=== PATIENT | male | born 1965 | race African-American/Black ===

== ENCOUNTER 2019-11-11 20:00 | Inpatient (IN) | payer MEDICARE, MEDICAID ==
[~2019-11-11] VITALS: Ht 167.6 cm; Wt 100.4 kg
[2019-11-11] MEDS ORDERED: FUROSEMIDE 40MG/4ML VIAL IVP ONE (21:15)
[2019-11-11 21:45] LABS: CHLORIDE 103 mEq/L (98-107)
[2019-11-11 21:50] LABS: BASOPHILS % 0.8 % (0.0-2.0); EOSINOPHILS % 3.3 % (0.0-5.0); HEMATOCRIT. 32.5 % (42.0-52.0); HEMOGLOBIN. 10.5 g/dL (14.0-18.0); LYMPHOCYTES % 17.3 % (20.0-50.0); MEAN CORPUSCULAR HEMOGLOBIN 31.7 pg (28.0-32.0); MEAN CORPUSCULAR VOLUME 97.8 fL (80.0-94.0); MEAN PLATELET VOLUME 9.7 fl (7.4-10.4); MONOCYTES % 10.9 % (2.0-8.0); NEUTROPHILS % 67.7 % (40.0-76.0); PLATELET 95 x1000/uL (130-400); RED BLOOD CELL COUNT 3.32 mill/uL (4.7-6.1)
[2019-11-11] MEDS ORDERED: MORPHINE SULFATE 4 MG/ML CPJ (NOT FOR IM USE) IV ONE (23:45)
[2019-11-12 00:15] VITALS: BP 132/81
[2019-11-12] MEDS ORDERED: FURO80TA87 MT (02:12)
[2019-11-12] MEDS ORDERED: FLUT1DIS3 INH (02:12)
[2019-11-12] MEDS ORDERED: LISI-186 MT (02:12)
[2019-11-12] MEDS ORDERED: AMOX-494 MT (02:12)
[2019-11-12] MEDS ORDERED: SPIR25TA6 MT (02:12)
[2019-11-12] MEDS ORDERED: ALLO100T MT (02:12)
[2019-11-12] MEDS ORDERED: ALBU6.7H9 INH (02:12)
[2019-11-12] MEDS ORDERED: ASPI-1158 MT (02:12)
[2019-11-12] MEDS ORDERED: PRED10TA23 MT (02:12)
[2019-11-12] MEDS ORDERED: HYDROCODONE/ACETAMINOPHEN 5/325MG TABLET PO PRN (02:15)
[2019-11-12] MEDS ORDERED: NON FORMULARY PATIENT HOME MED XX SCH ×3 (02:15)
[2019-11-12] MEDS ORDERED: IPRATROPIUM/ALBUTEROL 0.5-3(2.5)MG/3ML NEB HHN PRN (02:15)
[2019-11-12 03:55] VITALS: BP 110/77
[2019-11-12] MEDS: MORPHINE SULFATE 2 MG/ML CPJ (NOT FOR IM USE) IV PRN ×4 (03:58→20:08)
[2019-11-12 06:16] LABS: BASOPHILS % 0.8 % (0.0-2.0); EOSINOPHILS % 4.5 % (0.0-5.0); HEMATOCRIT. 31.5 % (42.0-52.0); HEMOGLOBIN. 10.1 g/dL (14.0-18.0); LYMPHOCYTES % 23.2 % (20.0-50.0); MEAN CORPUSCULAR HEMOGLOBIN 31.7 pg (28.0-32.0); MEAN CORPUSCULAR VOLUME 98.9 fL (80.0-94.0); MEAN PLATELET VOLUME 9.3 fl (7.4-10.4); MONOCYTES % 13.1 % (2.0-8.0); NEUTROPHILS % 58.4 % (40.0-76.0); PLATELET 87 x1000/uL (130-400); RED BLOOD CELL COUNT 3.18 mill/uL (4.7-6.1); RED CELL DISTRIBUTION WIDTH 18.2 % (11.6-14.6)
[2019-11-12 06:22] LABS: CHLORIDE 105 mEq/L (98-107)
[2019-11-12 08:00] VITALS: BP 106/69
[2019-11-12] MEDS: BUDESONIDE 0.5MG/2ML NEB HHN SCH ×2 (08:34→21:49)
[2019-11-12] MEDS: ALBUTEROL (0.083%) 2.5MG/3ML NEB HHN SCH (08:35)
[2019-11-12] MEDS: ALLOPURINOL 100 MG TABLET PO SCH (08:52)
[2019-11-12] MEDS: SPIRONOLACTONE 25MG TABLET PO SCH (08:52)
[2019-11-12] MEDS: PREDNISONE 10MG TABLET PO SCH (08:52)
[2019-11-12] MEDS: AMOXICILLIN 500 MG CAPSULE PO SCH ×3 (08:52→17:17)
[2019-11-12] MEDS: FUROSEMIDE 40MG TABLET PO SCH ×2 (08:52→20:07)
[2019-11-12] MEDS: ASPIRIN 81MG EC TABLET PO SCH (08:53)
[2019-11-12] MEDS: HEPARIN 5000 UNITS/ML VIAL SUBCUT SCH ×2 (08:54→20:07)
[2019-11-12] MEDS ORDERED: LISINOPRIL 5MG TABLET PO SCH (09:00)
[2019-11-12 12:00] VITALS: BP 137/65
[2019-11-12] MEDS: MAGNESIUM 2 G PREMIX 50 ML IV SCH ×2 (12:00→17:18)
[2019-11-12] MEDS ORDERED: PNEUMOCOCCAL 23-VAL P-SAC VAC 0.5 ML IM ONE (12:00)
[2019-11-12] MEDS: AMIODARONE HCL 200 MG TABLET PO SCH ×2 (12:57→17:18)
[2019-11-12] MEDS: CARVEDILOL 3.125 MG TABLET PO SCH ×2 (12:57→20:07)
[2019-11-12] MEDS: IPRATROPIUM/ALBUTEROL 0.5-3(2.5)MG/3ML NEB HHN SCH ×2 (14:19→21:50)
[2019-11-12 16:00] VITALS: BP 106/78
[2019-11-12 18:34] LABS: TOTAL IRON BINDING CAPACITY 400 ug/dL (250-450)
[2019-11-12 20:00] VITALS: BP 126/68
[2019-11-12 22:11] LABS: INR 1.1; PROTHROMBIN TIME 11.9 sec (9.6-11.0)
[2019-11-13] VITALS: BP 114/66
[2019-11-13] MEDS: MORPHINE SULFATE 2 MG/ML CPJ (NOT FOR IM USE) IV PRN ×4 (00:05→23:24)
[2019-11-13] MEDS: IPRATROPIUM/ALBUTEROL 0.5-3(2.5)MG/3ML NEB HHN SCH ×3 (01:55→14:22)
[2019-11-13 04:00] VITALS: BP 117/62
[2019-11-13 05:50] LABS: BASOPHILS % 0.5 % (0.0-2.0); EOSINOPHILS % 1.5 % (0.0-5.0); HEMOGLOBIN. 9.1 g/dL (14.0-18.0); LYMPHOCYTES % 12.3 % (20.0-50.0); MEAN CORPUSCULAR HEMOGLOBIN 31.6 pg (28.0-32.0); MEAN CORPUSCULAR VOLUME 97.2 fL (80.0-94.0); MEAN PLATELET VOLUME 9.2 fl (7.4-10.4); MONOCYTES % 11.5 % (2.0-8.0); NEUTROPHILS % 74.2 % (40.0-76.0); PLATELET 79 x1000/uL (130-400); RED BLOOD CELL COUNT 2.88 mill/uL (4.7-6.1)
[2019-11-13 06:06] LABS: PHOSPHORUS 3.6 mg/dL (2.5-4.9)
[2019-11-13 08:00] VITALS: BP 100/66
[2019-11-13] MEDS: CARVEDILOL 3.125 MG TABLET PO SCH ×2 (08:18→21:00)
[2019-11-13] MEDS: HEPARIN 5000 UNITS/ML VIAL SUBCUT SCH (08:19)
[2019-11-13] MEDS: ALLOPURINOL 100 MG TABLET PO SCH (08:23)
[2019-11-13] MEDS: AMOXICILLIN 500 MG CAPSULE PO SCH ×3 (08:23→17:27)
[2019-11-13] MEDS: ASPIRIN 81MG EC TABLET PO SCH (08:24)
[2019-11-13] MEDS: SPIRONOLACTONE 25MG TABLET PO SCH (08:24)
[2019-11-13] MEDS: FUROSEMIDE 40MG TABLET PO SCH ×2 (08:24→17:28)
[2019-11-13] MEDS: PREDNISONE 10MG TABLET PO SCH (08:24)
[2019-11-13] MEDS: AMIODARONE HCL 200 MG TABLET PO SCH ×3 (08:24→17:28)
[2019-11-13] MEDS: BUDESONIDE 0.5MG/2ML NEB HHN SCH (09:34)
[2019-11-13 12:00] VITALS: BP 94/65
[2019-11-13] MEDS ORDERED: MAGNESIUM GLUCONATE 500MG TABLET PO NR (13:24)
[2019-11-13 15:19] LABS: CLARITY URINE CLEAR (CLEAR); COLOR URINE YELLOW (YELLOW); KETONES URINE NEGATIVE (NEGATIVE); LEUKOCYTE ESTERASE URINE NEGATIVE (NEGATIVE); NITRITE URINE NEGATIVE (NEGATIVE); OCCULT BLOOD URINE NEGATIVE (NEGATIVE); PROTEIN URINE 1+ (NEGATIVE); SPECIFIC GRAVITY URINE 1.022 (1.005-1.030); UROBILINOGEN URINE 0.2 E.U./dL (0.2-1.0)
[2019-11-13] MEDS ORDERED: MAGNESIUM 2 G PREMIX 50 ML IV NR (15:30)
[2019-11-13 15:43] LABS: *AMPHETAMINES SCREEN URINE NEGATIVE (NEGATIVE); *BENZODIAZEPINES SCREEN URINE NEGATIVE (NEGATIVE); *COCAINE SCREEN URINE NEGATIVE (NEGATIVE); METHADONE URINE SCREEN NEGATIVE (NEGATIVE); OPIATES URINE SCREEN PRESUMTIVE POSITIVE (NEGATIVE)
[2019-11-13 15:44] LABS: CANNABINOID URINE SCREEN NEGATIVE (NEGATIVE); PHENCYCLIDINE URINE SCREEN NEGATIVE (NEGATIVE)
[2019-11-13 15:46] LABS: *BARBITURATES SCREEN URINE NEGATIVE (NEGATIVE)
[2019-11-13 16:00] VITALS: BP 131/65
[2019-11-13] MEDS: ALBUTEROL (0.083%) 2.5MG/3ML NEB HHN SCH (21:04)
[2019-11-13 21:57] VITALS: BP 102/66
[2019-11-14 01:10] VITALS: BP 103/48
[2019-11-14] MEDS: ALBUTEROL (0.083%) 2.5MG/3ML NEB HHN SCH (01:12)
[2019-11-14] MEDS: BUDESONIDE 0.5MG/2ML NEB HHN SCH ×2 (01:12→08:24)
[2019-11-14 04:00] VITALS: BP 99/59
[2019-11-14 05:28] LABS: BASOPHILS % 0.8 % (0.0-2.0); EOSINOPHILS % 2.8 % (0.0-5.0); HEMATOCRIT. 28.8 % (42.0-52.0); HEMOGLOBIN. 9.5 g/dL (14.0-18.0); LYMPHOCYTES % 19.1 % (20.0-50.0); MEAN CORPUSCULAR HEMOGLOBIN 32.2 pg (28.0-32.0); MEAN CORPUSCULAR VOLUME 97.5 fL (80.0-94.0); MEAN PLATELET VOLUME 9.4 fl (7.4-10.4); MONOCYTES % 13.5 % (2.0-8.0); NEUTROPHILS % 63.8 % (40.0-76.0); PLATELET 84 x1000/uL (130-400); RED BLOOD CELL COUNT 2.96 mill/uL (4.7-6.1); RED CELL DISTRIBUTION WIDTH 18.3 % (11.6-14.6)
[2019-11-14] MEDS: FUROSEMIDE 40MG TABLET PO SCH ×3 (06:51→17:20)
[2019-11-14] MEDS: AMIODARONE HCL 200 MG TABLET PO SCH ×4 (06:51→17:20)
[2019-11-14 08:00] VITALS: BP 104/70
[2019-11-14] MEDS: IPRATROPIUM/ALBUTEROL 0.5-3(2.5)MG/3ML NEB HHN SCH ×3 (08:24→20:11)
[2019-11-14 08:36] LABS: CHLORIDE 106 mEq/L (98-107)
[2019-11-14] MEDS: AMOXICILLIN 500 MG CAPSULE PO SCH ×3 (08:42→17:20)
[2019-11-14] MEDS: ASPIRIN 81MG EC TABLET PO SCH (08:43)
[2019-11-14] MEDS: SPIRONOLACTONE 25MG TABLET PO SCH (08:43)
[2019-11-14] MEDS: PREDNISONE 10MG TABLET PO SCH (08:43)
[2019-11-14] MEDS: ALLOPURINOL 100 MG TABLET PO SCH (08:43)
[2019-11-14] MEDS: MORPHINE SULFATE 2 MG/ML CPJ (NOT FOR IM USE) IV PRN ×3 (08:44→21:53)
[2019-11-14] MEDS: CARVEDILOL 3.125 MG TABLET PO SCH ×2 (08:49→20:23)
[2019-11-14 12:00] VITALS: BP 113/84
[2019-11-14 16:00] VITALS: BP 113/82
[2019-11-14 20:00] VITALS: BP 120/78
[2019-11-15] VITALS: BP 111/79
[2019-11-15] MEDS: IPRATROPIUM/ALBUTEROL 0.5-3(2.5)MG/3ML NEB HHN SCH ×5 (01:38→20:36)
[2019-11-15] MEDS: MORPHINE SULFATE 2 MG/ML CPJ (NOT FOR IM USE) IV PRN ×4 (02:14→21:09)
[2019-11-15 04:00] VITALS: BP 103/79
[2019-11-15 06:00] LABS: BASOPHILS % 0.6 % (0.0-2.0); EOSINOPHILS % 2.2 % (0.0-5.0); HEMATOCRIT. 28.3 % (42.0-52.0); HEMOGLOBIN. 9.3 g/dL (14.0-18.0); MEAN CORPUSCULAR VOLUME 97.3 fL (80.0-94.0); MEAN PLATELET VOLUME 9.3 fl (7.4-10.4); MONOCYTES % 13.4 % (2.0-8.0); NEUTROPHILS % 68.8 % (40.0-76.0); PLATELET 84 x1000/uL (130-400); RED BLOOD CELL COUNT 2.91 mill/uL (4.7-6.1); RED CELL DISTRIBUTION WIDTH 17.8 % (11.6-14.6)
[2019-11-15 06:17] LABS: CHLORIDE 104 mEq/L (98-107)
[2019-11-15] MEDS: FUROSEMIDE 40MG TABLET PO SCH (06:24)
[2019-11-15] MEDS: AMIODARONE HCL 200 MG TABLET PO SCH ×3 (06:24→17:05)
[2019-11-15 08:00] VITALS: BP 112/77
[2019-11-15] MEDS: ALLOPURINOL 100 MG TABLET PO SCH (08:38)
[2019-11-15] MEDS: AMOXICILLIN 500 MG CAPSULE PO SCH ×3 (08:38→17:05)
[2019-11-15] MEDS: ASPIRIN 81MG EC TABLET PO SCH (08:38)
[2019-11-15] MEDS: CARVEDILOL 3.125 MG TABLET PO SCH ×2 (08:38→21:08)
[2019-11-15] MEDS: PREDNISONE 10MG TABLET PO SCH (08:38)
[2019-11-15] MEDS: SPIRONOLACTONE 25MG TABLET PO SCH (08:39)
[2019-11-15] MEDS: BUDESONIDE 0.5MG/2ML NEB HHN SCH (09:40)
[2019-11-15] MEDS: BUMETANIDE 1MG/4ML VIAL IV SCH (11:00)
[2019-11-15 12:00] VITALS: BP 110/70
[2019-11-15 16:00] VITALS: BP 125/70
[2019-11-15] MEDS: HEPARIN 5000 UNITS/ML VIAL SUBCUT SCH ×2 (21:00→21:10)
[2019-11-16] VITALS: BP 150/65
[2019-11-16] MEDS: MORPHINE SULFATE 2 MG/ML CPJ (NOT FOR IM USE) IV PRN ×4 (01:09→18:58)
[2019-11-16] MEDS: IPRATROPIUM/ALBUTEROL 0.5-3(2.5)MG/3ML NEB HHN SCH ×2 (01:44→21:22)
[2019-11-16 04:00] VITALS: BP 126/83
[2019-11-16 06:31] LABS: BASOPHILS % 0.8 % (0.0-2.0); EOSINOPHILS % 2.3 % (0.0-5.0); HEMATOCRIT. 29.6 % (42.0-52.0); HEMOGLOBIN. 9.7 g/dL (14.0-18.0); LYMPHOCYTES % 15.5 % (20.0-50.0); MEAN CORPUSCULAR HEMOGLOBIN 32.2 pg (28.0-32.0); MEAN CORPUSCULAR VOLUME 98.2 fL (80.0-94.0); MEAN PLATELET VOLUME 10.1 fl (7.4-10.4); MONOCYTES % 13.9 % (2.0-8.0); NEUTROPHILS % 67.5 % (40.0-76.0); PLATELET 97 x1000/uL (130-400); RED BLOOD CELL COUNT 3.01 mill/uL (4.7-6.1); RED CELL DISTRIBUTION WIDTH 17.7 % (11.6-14.6)
[2019-11-16] MEDS: AMIODARONE HCL 200 MG TABLET PO SCH ×2 (06:32→11:54)
[2019-11-16 06:50] LABS: CHLORIDE 102 mEq/L (98-107)
[2019-11-16 08:00] VITALS: BP 122/92
[2019-11-16] MEDS: ALBUTEROL (0.083%) 2.5MG/3ML NEB HHN SCH ×2 (08:16→13:28)
[2019-11-16] MEDS: HEPARIN 5000 UNITS/ML VIAL SUBCUT SCH ×2 (09:00→21:00)
[2019-11-16] MEDS: BUMETANIDE 1MG/4ML VIAL IV SCH (09:00)
[2019-11-16] MEDS: SPIRONOLACTONE 25MG TABLET PO SCH (10:05)
[2019-11-16] MEDS: ALLOPURINOL 100 MG TABLET PO SCH (10:05)
[2019-11-16] MEDS: ASPIRIN 81MG EC TABLET PO SCH (10:06)
[2019-11-16] MEDS: CARVEDILOL 3.125 MG TABLET PO SCH (10:06)
[2019-11-16] MEDS: AMOXICILLIN 500 MG CAPSULE PO SCH ×3 (10:28→18:00)
[2019-11-16] MEDS ORDERED: PREDNISONE 10MG TABLET PO NR (10:30)
[2019-11-16 12:00] VITALS: BP 104/69
[2019-11-16] MEDS ORDERED: AMIODARONE HCL 200 MG TABLET PO SCH (14:00)
[2019-11-16 16:00] VITALS: BP 112/72
[2019-11-16 20:00] VITALS: BP 112/80
[2019-11-16] MEDS: CARVEDILOL 6.25 MG TABLET PO SCH (21:00)
[2019-11-17] VITALS: BP 109/75
[2019-11-17] MEDS: MORPHINE SULFATE 2 MG/ML CPJ (NOT FOR IM USE) IV PRN (00:04)
[2019-11-17] MEDS: IPRATROPIUM/ALBUTEROL 0.5-3(2.5)MG/3ML NEB HHN SCH ×4 (02:37→21:54)
[2019-11-17 04:00] VITALS: BP 133/91
[2019-11-17 06:44] LABS: HEMATOCRIT. 28.1 % (42.0-52.0); HEMOGLOBIN. 9.2 g/dL (14.0-18.0); MEAN CORPUSCULAR HEMOGLOBIN 32.3 pg (28.0-32.0); MEAN CORPUSCULAR VOLUME 98.5 fL (80.0-94.0); MEAN PLATELET VOLUME 8.8 fl (7.4-10.4); PLATELET 89 x1000/uL (130-400); RED BLOOD CELL COUNT 2.86 mill/uL (4.7-6.1); RED CELL DISTRIBUTION WIDTH 18.3 % (11.6-14.6)
[2019-11-17 08:00] VITALS: BP 110/86
[2019-11-17 08:11] LABS: CHLORIDE 105 mEq/L (98-107)
[2019-11-17] MEDS: HEPARIN 5000 UNITS/ML VIAL SUBCUT SCH ×2 (08:31→20:49)
[2019-11-17] MEDS: BUMETANIDE 1MG/4ML VIAL IV SCH ×2 (09:00→14:25)
[2019-11-17] MEDS: CARVEDILOL 6.25 MG TABLET PO SCH ×2 (09:00→20:49)
[2019-11-17] MEDS: ASPIRIN 81MG EC TABLET PO SCH (09:34)
[2019-11-17] MEDS: AMOXICILLIN 500 MG CAPSULE PO SCH (09:34)
[2019-11-17] MEDS: ALLOPURINOL 100 MG TABLET PO SCH (09:35)
[2019-11-17] MEDS: AMIODARONE HCL 200 MG TABLET PO SCH (09:35)
[2019-11-17] MEDS: SPIRONOLACTONE 25MG TABLET PO SCH (09:36)
[2019-11-17 10:25] LABS: PLATELET ESTIMATE DECREASED
[2019-11-17 12:00] VITALS: BP 114/79
[2019-11-17] MEDS ORDERED: PREDNISONE 20MG TABLET PO NR (13:15)
[2019-11-17 16:00] VITALS: BP 110/85
[2019-11-17 20:00] VITALS: BP 100/59
[2019-11-18] VITALS: BP 110/60
[2019-11-18] MEDS: IPRATROPIUM/ALBUTEROL 0.5-3(2.5)MG/3ML NEB HHN SCH ×3 (01:06→20:51)
[2019-11-18 04:00] VITALS: BP 105/62
[2019-11-18 08:00] VITALS: BP 125/75
[2019-11-18] MEDS: ALLOPURINOL 100 MG TABLET PO SCH (08:26)
[2019-11-18] MEDS: PREDNISONE 20MG TABLET PO SCH (08:26)
[2019-11-18] MEDS: SPIRONOLACTONE 25MG TABLET PO SCH (08:26)
[2019-11-18] MEDS: CARVEDILOL 6.25 MG TABLET PO SCH (08:27)
[2019-11-18] MEDS: ASPIRIN 81MG EC TABLET PO SCH (08:27)
[2019-11-18] MEDS: BUMETANIDE 1MG/4ML VIAL IV SCH (08:27)
[2019-11-18] MEDS: AMIODARONE HCL 200 MG TABLET PO SCH (08:28)
[2019-11-18] MEDS: HEPARIN 5000 UNITS/ML VIAL SUBCUT SCH ×2 (08:28→20:18)
[2019-11-18 08:34] LABS: HEMATOCRIT. 29.2 % (42.0-52.0); HEMOGLOBIN. 9.6 g/dL (14.0-18.0); MEAN CORPUSCULAR HEMOGLOBIN 32.4 pg (28.0-32.0); MEAN CORPUSCULAR VOLUME 98.3 fL (80.0-94.0); MEAN PLATELET VOLUME 9.3 fl (7.4-10.4); PLATELET 97 x1000/uL (130-400); RED BLOOD CELL COUNT 2.97 mill/uL (4.7-6.1); RED CELL DISTRIBUTION WIDTH 17.9 % (11.6-14.6)
[2019-11-18 08:42] LABS: CHLORIDE 102 mEq/L (98-107)
[2019-11-18 08:50] LABS: PHOSPHORUS 4.4 mg/dL (2.5-4.9)
[2019-11-18] MEDS ORDERED: IRON SUCROSE XX SCH (10:15)
[2019-11-18] MEDS ORDERED: [UNRECOGNIZED DRUG - OTHER] XX SCH (10:15)
[2019-11-18 10:41] LABS: PLATELET ESTIMATE SLIGHTLY DECREASED
[2019-11-18 12:00] VITALS: BP_SYST 109; BP_SYST 119; BP_DIAS 69; BP_DIAS 76
[2019-11-18] MEDS: IRON SUCROSE COMPLEX 100 MG/5 ML ML IV SCH (13:08)
[2019-11-18] MEDS: ALBUTEROL (0.083%) 2.5MG/3ML NEB HHN SCH (15:18)
[2019-11-18 16:00] VITALS: BP 126/66
[2019-11-18 20:00] VITALS: BP 112/75
[2019-11-18] MEDS: CARVEDILOL 12.5MG TABLET PO SCH (20:18)
[2019-11-19] VITALS: BP 113/78
[2019-11-19] MEDS: IPRATROPIUM/ALBUTEROL 0.5-3(2.5)MG/3ML NEB HHN SCH ×2 (02:13→21:00)
[2019-11-19 04:00] VITALS: BP 103/69
[2019-11-19 07:11] LABS: HEMATOCRIT. 27.7 % (42.0-52.0); MEAN CORPUSCULAR HEMOGLOBIN 31.9 pg (28.0-32.0); MEAN CORPUSCULAR VOLUME 97.6 fL (80.0-94.0); MEAN PLATELET VOLUME 9.9 fl (7.4-10.4); PLATELET 83 x1000/uL (130-400); RED BLOOD CELL COUNT 2.83 mill/uL (4.7-6.1); RED CELL DISTRIBUTION WIDTH 18.1 % (11.6-14.6)
[2019-11-19 07:15] LABS: CHLORIDE 102 mEq/L (98-107)
[2019-11-19 08:00] VITALS: BP 112/81
[2019-11-19 08:33] LABS: PLATELET ESTIMATE DECREASED
[2019-11-19] MEDS: BUMETANIDE 1MG/4ML VIAL IV SCH (08:49)
[2019-11-19] MEDS: ALLOPURINOL 100 MG TABLET PO SCH (08:49)
[2019-11-19] MEDS: ASPIRIN 81MG EC TABLET PO SCH (08:50)
[2019-11-19] MEDS: CARVEDILOL 12.5MG TABLET PO SCH ×2 (08:50→21:00)
[2019-11-19] MEDS: AMIODARONE HCL 200 MG TABLET PO SCH (08:50)
[2019-11-19] MEDS: PREDNISONE 20MG TABLET PO SCH (08:50)
[2019-11-19] MEDS: HEPARIN 5000 UNITS/ML VIAL SUBCUT SCH ×2 (09:00→21:00)
[2019-11-19] MEDS: SPIRONOLACTONE 50MG TABLET PO SCH (09:00)
[2019-11-19] MEDS: ALBUTEROL (0.083%) 2.5MG/3ML NEB HHN SCH ×2 (09:21→13:14)
[2019-11-19] MEDS: IRON SUCROSE COMPLEX 100 MG/5 ML ML IV SCH (11:25)
[2019-11-19 12:00] VITALS: BP 98/60
[2019-11-19] MEDS: LOSARTAN POTASSIUM 25 MG TABLET PO SCH (12:26)
[2019-11-19 16:00] VITALS: BP 118/69
[2019-11-19 20:13] LABS: MONOTEST NEGATIVE (NEGATIVE)
[2019-11-19 20:31] VITALS: BP 112/74
[2019-11-20 00:31] VITALS: BP 100/58
[2019-11-20] MEDS: IPRATROPIUM/ALBUTEROL 0.5-3(2.5)MG/3ML NEB HHN SCH ×4 (01:42→21:03)
[2019-11-20 04:00] VITALS: BP 152/68
[2019-11-20] MEDS: CYANOCOBALAMIN 1000MCG TABLET PO SCH (06:15)
[2019-11-20 06:42] LABS: HEMATOCRIT. 28.3 % (42.0-52.0); HEMOGLOBIN. 9.4 g/dL (14.0-18.0); MEAN CORPUSCULAR HEMOGLOBIN 32.7 pg (28.0-32.0); MEAN PLATELET VOLUME 9.4 fl (7.4-10.4); PLATELET 83 x1000/uL (130-400); RED BLOOD CELL COUNT 2.89 mill/uL (4.7-6.1); RED CELL DISTRIBUTION WIDTH 17.6 % (11.6-14.6)
[2019-11-20 07:21] LABS: CHLORIDE 101 mEq/L (98-107)
[2019-11-20 08:00] VITALS: BP 119/76
[2019-11-20] MEDS: AMIODARONE HCL 200 MG TABLET PO SCH (08:52)
[2019-11-20] MEDS: LOSARTAN POTASSIUM 25 MG TABLET PO SCH (08:52)
[2019-11-20] MEDS: PREDNISONE 20MG TABLET PO SCH (08:52)
[2019-11-20] MEDS: BUMETANIDE 1MG/4ML VIAL IV SCH ×2 (08:52→09:00)
[2019-11-20] MEDS: ASPIRIN 81MG EC TABLET PO SCH (08:52)
[2019-11-20] MEDS: HEPARIN 5000 UNITS/ML VIAL SUBCUT SCH ×2 (08:53→20:51)
[2019-11-20] MEDS: ALLOPURINOL 100 MG TABLET PO SCH (08:53)
[2019-11-20] MEDS: CARVEDILOL 12.5MG TABLET PO SCH ×2 (08:53→20:57)
[2019-11-20] MEDS: SPIRONOLACTONE 50MG TABLET PO SCH (08:53)
[2019-11-20 09:29] LABS: ATYPICAL LYMPHOCYTES 2
[2019-11-20 09:30] LABS: PLATELET ESTIMATE DECREASED
[2019-11-20] MEDS: IRON SUCROSE COMPLEX 100 MG/5 ML ML IV SCH (11:31)
[2019-11-20 12:00] VITALS: BP 102/66
[2019-11-20] MEDS ORDERED: METOLAZONE 5MG TABLET PO NR (12:00)
[2019-11-20] MEDS ORDERED: BUMETANIDE 1MG TABLET PO NR (13:00)
[2019-11-20 15:53] LABS: HEPATITIS B SURFACE ANTIGEN NEGATIVE
[2019-11-20 16:00] VITALS: BP 116/82
[2019-11-20 16:22] LABS: HEPATITIS A AB IGM NEGATIVE (NEGATIVE)
[2019-11-20 20:00] VITALS: BP 102/67
[2019-11-21] VITALS: BP 117/69
[2019-11-21] MEDS: IPRATROPIUM/ALBUTEROL 0.5-3(2.5)MG/3ML NEB HHN SCH ×3 (01:20→21:07)
[2019-11-21 04:00] VITALS: BP 110/70
[2019-11-21] MEDS: CYANOCOBALAMIN 1000MCG TABLET PO SCH (06:21)
[2019-11-21 06:59] LABS: BASOPHILS % 0.9 % (0.0-2.0); EOSINOPHILS % 3.3 % (0.0-5.0); HEMATOCRIT. 30.1 % (42.0-52.0); HEMOGLOBIN. 9.8 g/dL (14.0-18.0); MEAN CORPUSCULAR VOLUME 98.3 fL (80.0-94.0); MEAN PLATELET VOLUME 9.3 fl (7.4-10.4); MONOCYTES % 14.8 % (2.0-8.0); PLATELET 90 x1000/uL (130-400); RED BLOOD CELL COUNT 3.06 mill/uL (4.7-6.1); RED CELL DISTRIBUTION WIDTH 17.7 % (11.6-14.6)
[2019-11-21 07:16] LABS: CHLORIDE 101 mEq/L (98-107)
[2019-11-21 08:00] VITALS: BP 122/79
[2019-11-21 08:12] LABS: HIV SCREEN 4G Non Reactive (Non Reactive)
[2019-11-21] MEDS: ALLOPURINOL 100 MG TABLET PO SCH (08:27)
[2019-11-21] MEDS: ASPIRIN 81MG EC TABLET PO SCH (08:27)
[2019-11-21] MEDS: LOSARTAN POTASSIUM 25 MG TABLET PO SCH (08:27)
[2019-11-21] MEDS: CARVEDILOL 12.5MG TABLET PO SCH ×2 (08:27→21:00)
[2019-11-21] MEDS: AMIODARONE HCL 200 MG TABLET PO SCH (08:27)
[2019-11-21] MEDS: PREDNISONE 20MG TABLET PO SCH (08:27)
[2019-11-21] MEDS: HEPARIN 5000 UNITS/ML VIAL SUBCUT SCH ×2 (08:28→21:00)
[2019-11-21] MEDS: BUMETANIDE 1MG/4ML VIAL IV SCH ×2 (08:28→10:44)
[2019-11-21] MEDS: SPIRONOLACTONE 50MG TABLET PO SCH (08:28)
[2019-11-21] MEDS: ALBUTEROL (0.083%) 2.5MG/3ML NEB HHN SCH (09:27)
[2019-11-21] MEDS: ACETAMINOPHEN 325MG TABLET PO PRN ×2 (11:30→21:29)
[2019-11-21 12:00] VITALS: BP 108/67
[2019-11-21] MEDS ORDERED: IOHEXOL-300 100 ML BOTTLE ONE (12:31)
[2019-11-21] MEDS ORDERED: BUMETANIDE 1MG/4ML VIAL IV NR (14:45)
[2019-11-21 16:00] VITALS: BP 99/60
[2019-11-21 20:00] VITALS: BP 104/63
[2019-11-22] VITALS (8 sets, daily range): BP systolic 93–154; BP diastolic 56–89
[2019-11-22] MEDS: IPRATROPIUM/ALBUTEROL 0.5-3(2.5)MG/3ML NEB HHN SCH ×3 (01:25→14:55)
[2019-11-22] MEDS: CYANOCOBALAMIN 1000MCG TABLET PO SCH ×2 (07:00→09:35)
[2019-11-22 08:56] LABS: HEMOGLOBIN. 9.5 g/dL (14.0-18.0); MEAN CORPUSCULAR HEMOGLOBIN 32.6 pg (28.0-32.0); MEAN CORPUSCULAR VOLUME 99.6 fL (80.0-94.0); MEAN PLATELET VOLUME 9.7 fl (7.4-10.4); PLATELET 80 x1000/uL (130-400); RED BLOOD CELL COUNT 2.92 mill/uL (4.7-6.1); RED CELL DISTRIBUTION WIDTH 17.6 % (11.6-14.6)
[2019-11-22] MEDS: LOSARTAN POTASSIUM 25 MG TABLET PO SCH (09:00)
[2019-11-22] MEDS: CARVEDILOL 12.5MG TABLET PO SCH ×2 (09:00→21:12)
[2019-11-22] MEDS: HEPARIN 5000 UNITS/ML VIAL SUBCUT SCH ×2 (09:00→21:00)
[2019-11-22] MEDS: BUMETANIDE 1MG/4ML VIAL IV SCH (09:00)
[2019-11-22 09:03] LABS: CHLORIDE 101 mEq/L (98-107)
[2019-11-22] MEDS: ASPIRIN 81MG EC TABLET PO SCH (09:35)
[2019-11-22] MEDS: PREDNISONE 20MG TABLET PO SCH (09:35)
[2019-11-22] MEDS: AMIODARONE HCL 200 MG TABLET PO SCH (09:35)
[2019-11-22] MEDS: ALLOPURINOL 100 MG TABLET PO SCH (09:35)
[2019-11-22] MEDS: SPIRONOLACTONE 50MG TABLET PO SCH (09:36)
[2019-11-22 11:25] LABS: PLATELET ESTIMATE DECREASED
[2019-11-22 14:30] LABS: BG BASE EXCESS 9.8 mmol/L (-2.0-2.0); BG CARBOXYHEMOGLOBIN 0.3 % (0.5-1.5); BG DEOXYHEMOGLOBIN 1.8 % (0.0-5.0); BG FRACTION INSPIRED OXYGEN 44; BG METHEMOGLOBIN 0.3 % (0.0-1.5); BG OXYGEN SATURATION 98.2 % (92.0-98.5); BG OXYHEMOGLOBIN 97.6 % (94.0-97.0); BG PCO2 65.9 mmHg (35.0-45.0); BG PH 7.367 (7.350-7.450); BG PO2 125.5 mmHg (75.0-100.0); BG SAMPLE SITE RIGHT BRACHIAL; BG TOTAL HEMOGLOBIN 10.4 g/dL (12.0-18.0); BG VENT MODE NASAL CANNULA
[2019-11-22] MEDS: ACETAMINOPHEN 325MG TABLET PO PRN (21:11)
[2019-11-23] VITALS (11 sets, daily range): BP systolic 94–129; BP diastolic 65–93
[2019-11-23] MEDS: IPRATROPIUM/ALBUTEROL 0.5-3(2.5)MG/3ML NEB HHN SCH ×4 (02:19→20:33)
[2019-11-23] MEDS: ACETAMINOPHEN 325MG TABLET PO PRN ×2 (04:14→16:11)
[2019-11-23 07:26] LABS: EOSINOPHILS % 2.7 % (0.0-5.0); HEMATOCRIT. 30.7 % (42.0-52.0); LYMPHOCYTES % 18.8 % (20.0-50.0); MEAN CORPUSCULAR VOLUME 98.6 fL (80.0-94.0); MEAN PLATELET VOLUME 9.7 fl (7.4-10.4); MONOCYTES % 13.2 % (2.0-8.0); NEUTROPHILS % 64.3 % (40.0-76.0); PLATELET 79 x1000/uL (130-400); RED BLOOD CELL COUNT 3.12 mill/uL (4.7-6.1); RED CELL DISTRIBUTION WIDTH 17.7 % (11.6-14.6)
[2019-11-23 07:39] LABS: CHLORIDE 100 mEq/L (98-107)
[2019-11-23] MEDS: ALLOPURINOL 100 MG TABLET PO SCH (08:38)
[2019-11-23] MEDS: LOSARTAN POTASSIUM 25 MG TABLET PO SCH (08:39)
[2019-11-23] MEDS: AMIODARONE HCL 200 MG TABLET PO SCH (08:39)
[2019-11-23] MEDS: PREDNISONE 20MG TABLET PO SCH (08:39)
[2019-11-23] MEDS: ASPIRIN 81MG EC TABLET PO SCH (08:39)
[2019-11-23] MEDS: CARVEDILOL 12.5MG TABLET PO SCH ×2 (08:40→20:17)
[2019-11-23] MEDS: HEPARIN 5000 UNITS/ML VIAL SUBCUT SCH (08:43)
[2019-11-23] MEDS: BUMETANIDE 1MG/4ML VIAL IV SCH (09:00)
[2019-11-23] MEDS: CYANOCOBALAMIN 1000MCG TABLET PO SCH (11:47)
[2019-11-23] MEDS: SPIRONOLACTONE 50MG TABLET PO SCH (11:54)
[2019-11-23] MEDS ORDERED: BUMETANIDE 1MG/4ML VIAL IV NR (15:38)
[2019-11-24] VITALS (10 sets, daily range): BP systolic 95–140; BP diastolic 66–86
[2019-11-24] MEDS: ACETAMINOPHEN 325MG TABLET PO PRN ×2 (00:23→19:37)
[2019-11-24] MEDS: IPRATROPIUM/ALBUTEROL 0.5-3(2.5)MG/3ML NEB HHN SCH ×4 (01:09→20:25)
[2019-11-24 06:54] LABS: CHLORIDE 99 mEq/L (98-107)
[2019-11-24 07:19] LABS: BASOPHILS % 0.9 % (0.0-2.0); EOSINOPHILS % 2.7 % (0.0-5.0); HEMATOCRIT. 28.4 % (42.0-52.0); HEMOGLOBIN. 9.3 g/dL (14.0-18.0); LYMPHOCYTES % 19.9 % (20.0-50.0); MEAN CORPUSCULAR HEMOGLOBIN 32.4 pg (28.0-32.0); MEAN CORPUSCULAR VOLUME 99.2 fL (80.0-94.0); MEAN PLATELET VOLUME 9.7 fl (7.4-10.4); MONOCYTES % 12.8 % (2.0-8.0); NEUTROPHILS % 63.7 % (40.0-76.0); PLATELET 73 x1000/uL (130-400); RED BLOOD CELL COUNT 2.86 mill/uL (4.7-6.1); RED CELL DISTRIBUTION WIDTH 17.7 % (11.6-14.6)
[2019-11-24] MEDS: BUMETANIDE 1MG/4ML VIAL IV SCH (09:00)
[2019-11-24] MEDS: ASPIRIN 81MG EC TABLET PO SCH (09:20)
[2019-11-24] MEDS: PREDNISONE 20MG TABLET PO SCH (09:20)
[2019-11-24] MEDS: SPIRONOLACTONE 50MG TABLET PO SCH (09:23)
[2019-11-24] MEDS: LOSARTAN POTASSIUM 25 MG TABLET PO SCH (09:24)
[2019-11-24] MEDS: AMIODARONE HCL 200 MG TABLET PO SCH (09:24)
[2019-11-24] MEDS: CARVEDILOL 12.5MG TABLET PO SCH ×2 (09:24→21:00)
[2019-11-24] MEDS: ALLOPURINOL 100 MG TABLET PO SCH (09:25)
[2019-11-24] MEDS: CYANOCOBALAMIN 1000MCG TABLET PO SCH (10:26)
[2019-11-25 00:16] VITALS: BP 119/83
[2019-11-25] MEDS: IPRATROPIUM/ALBUTEROL 0.5-3(2.5)MG/3ML NEB HHN SCH ×4 (03:01→19:58)
[2019-11-25 04:46] VITALS: BP 124/83
[2019-11-25 06:52] LABS: BASOPHILS % 0.7 % (0.0-2.0); EOSINOPHILS % 2.7 % (0.0-5.0); HEMATOCRIT. 29.8 % (42.0-52.0); HEMOGLOBIN. 9.7 g/dL (14.0-18.0); LYMPHOCYTES % 19.5 % (20.0-50.0); MEAN CORPUSCULAR HEMOGLOBIN 31.8 pg (28.0-32.0); MEAN CORPUSCULAR VOLUME 97.9 fL (80.0-94.0); MEAN PLATELET VOLUME 10.1 fl (7.4-10.4); MONOCYTES % 12.9 % (2.0-8.0); NEUTROPHILS % 64.2 % (40.0-76.0); PLATELET 74 x1000/uL (130-400); RED BLOOD CELL COUNT 3.04 mill/uL (4.7-6.1); RED CELL DISTRIBUTION WIDTH 16.9 % (11.6-14.6)
[2019-11-25 07:14] LABS: CHLORIDE 100 mEq/L (98-107)
[2019-11-25 08:00] VITALS: BP 117/73
[2019-11-25] MEDS: SPIRONOLACTONE 50MG TABLET PO SCH (08:13)
[2019-11-25] MEDS: ALLOPURINOL 100 MG TABLET PO SCH (08:14)
[2019-11-25] MEDS: CYANOCOBALAMIN 1000MCG TABLET PO SCH (08:14)
[2019-11-25] MEDS: AMIODARONE HCL 200 MG TABLET PO SCH (08:14)
[2019-11-25] MEDS: ASPIRIN 81MG EC TABLET PO SCH (08:14)
[2019-11-25] MEDS: PREDNISONE 20MG TABLET PO SCH (08:14)
[2019-11-25] MEDS: CARVEDILOL 12.5MG TABLET PO SCH ×2 (08:15→20:31)
[2019-11-25] MEDS: BUMETANIDE 1MG/4ML VIAL IV SCH (08:18)
[2019-11-25] MEDS: LOSARTAN POTASSIUM 25 MG TABLET PO SCH (09:00)
[2019-11-25 12:00] VITALS: BP 105/76
[2019-11-25 16:00] VITALS: BP 106/78
[2019-11-25 20:00] VITALS: BP 109/74
[2019-11-26] VITALS (7 sets, daily range): BP systolic 96–136; BP diastolic 66–91
[2019-11-26] MEDS: ACETAMINOPHEN 325MG TABLET PO PRN (01:35)
[2019-11-26] MEDS: IPRATROPIUM/ALBUTEROL 0.5-3(2.5)MG/3ML NEB HHN SCH ×4 (02:12→20:40)
[2019-11-26 07:16] LABS: BASOPHILS % 0.9 % (0.0-2.0); EOSINOPHILS % 2.5 % (0.0-5.0); HEMATOCRIT. 30.1 % (42.0-52.0); HEMOGLOBIN. 9.9 g/dL (14.0-18.0); LYMPHOCYTES % 19.6 % (20.0-50.0); MEAN CORPUSCULAR HEMOGLOBIN 32.4 pg (28.0-32.0); MEAN CORPUSCULAR VOLUME 98.6 fL (80.0-94.0); MEAN PLATELET VOLUME 10.5 fl (7.4-10.4); PLATELET 74 x1000/uL (130-400); RED BLOOD CELL COUNT 3.05 mill/uL (4.7-6.1); RED CELL DISTRIBUTION WIDTH 17.2 % (11.6-14.6)
[2019-11-26 07:36] LABS: CHLORIDE 100 mEq/L (98-107)
[2019-11-26] MEDS: CARVEDILOL 12.5MG TABLET PO SCH ×2 (09:00→21:36)
[2019-11-26] MEDS: BUMETANIDE 1MG/4ML VIAL IV SCH (09:00)
[2019-11-26] MEDS: LOSARTAN POTASSIUM 25 MG TABLET PO SCH (09:00)
[2019-11-26] MEDS: PREDNISONE 20MG TABLET PO SCH (09:16)
[2019-11-26] MEDS: ALLOPURINOL 100 MG TABLET PO SCH (09:16)
[2019-11-26] MEDS: AMIODARONE HCL 200 MG TABLET PO SCH (09:16)
[2019-11-26] MEDS: ASPIRIN 81MG EC TABLET PO SCH (09:16)
[2019-11-26] MEDS: CYANOCOBALAMIN 1000MCG TABLET PO SCH (09:16)
[2019-11-26] MEDS: SPIRONOLACTONE 50MG TABLET PO SCH (09:16)
[2019-11-26] MEDS ORDERED: ALD50 PO (10:25)
[2019-11-26] MEDS ORDERED: AMI2 PO (10:25)
[2019-11-26] MEDS ORDERED: COR12 PO (10:25)
[2019-11-26] MEDS ORDERED: P20 PO (10:25)
[2019-11-26] MEDS ORDERED: LOSA25TA3 PO (10:25)
[2019-11-26] MEDS ORDERED: FERR-71 MT (10:26)
[2019-11-27] VITALS (7 sets, daily range): BP systolic 113–122; BP diastolic 70–87
[2019-11-27] MEDS: IPRATROPIUM/ALBUTEROL 0.5-3(2.5)MG/3ML NEB HHN SCH ×2 (01:06→07:40)
[2019-11-27] MEDS: ACETAMINOPHEN 325MG TABLET PO PRN (03:38)
[2019-11-27] MEDS: AMIODARONE HCL 200 MG TABLET PO SCH (09:51)
[2019-11-27] MEDS: ALLOPURINOL 100 MG TABLET PO SCH (09:51)
[2019-11-27] MEDS: LOSARTAN POTASSIUM 25 MG TABLET PO SCH (09:51)
[2019-11-27] MEDS: SPIRONOLACTONE 50MG TABLET PO SCH (09:51)
[2019-11-27] MEDS: PREDNISONE 20MG TABLET PO SCH (09:52)
[2019-11-27] MEDS: ASPIRIN 81MG EC TABLET PO SCH (09:52)
[2019-11-27] MEDS: CARVEDILOL 12.5MG TABLET PO SCH (09:52)
[2019-11-27] MEDS: BUMETANIDE 1MG/4ML VIAL IV SCH (09:54)
== END 2019-11-27 15:12 | disposition home or self-care (01) | DRG 194 ==
LOC: ER 20:00 → 5WST 22:52 → EDBEDREQTM 23:01 → EDBEDREQ 23:01 → ENRESERV 23:07 → 3WST 11-22 17:20
PROVIDERS: ADMIT Internal Medicine; ATTEND Internal Medicine
DX: I13.0 Hypertensive heart and chronic kidney disease with heart failure and stage 1 through stage 4 chronic kidney disease, or unspecified chronic kidney disease (principal); J96.21 Acute and chronic respiratory failure with hypoxia; I50.23 Acute on chronic systolic (congestive) heart failure; I31.3 Pericardial effusion (noninflammatory); I48.91 Unspecified atrial fibrillation; I42.2 Other hypertrophic cardiomyopathy; I47.2 Ventricular tachycardia; E05.90 Thyrotoxicosis, unspecified without thyrotoxic crisis or storm; N18.2 Chronic kidney disease, stage 2 (mild); M1A.9XX0 Chronic gout, unspecified, without tophus (tophi); J44.9 Chronic obstructive pulmonary disease, unspecified; D69.6 Thrombocytopenia, unspecified; I51.3 Intracardiac thrombosis, not elsewhere classified; I65.23 Occlusion and stenosis of bilateral carotid arteries; E11.22 Type 2 diabetes mellitus with diabetic chronic kidney disease; E66.9 Obesity, unspecified; E83.42 Hypomagnesemia; E03.9 Hypothyroidism, unspecified; I36.1 Nonrheumatic tricuspid (valve) insufficiency; I27.21 Secondary pulmonary arterial hypertension; M79.89 Other specified soft tissue disorders; I34.0 Nonrheumatic mitral (valve) insufficiency; F17.210 Nicotine dependence, cigarettes, uncomplicated; D61.818 Other pancytopenia; D53.9 Nutritional anemia, unspecified; Z20.828 Contact with and (suspected) exposure to other viral communicable diseases; R22.1 Localized swelling, mass and lump, neck; J98.11 Atelectasis; N17.9 Acute kidney failure, unspecified; Z53.20 Procedure and treatment not carried out because of patient's decision for unspecified reasons; I25.110 Atherosclerotic heart disease of native coronary artery with unstable angina pectoris; Z91.19 Patient's noncompliance with other medical treatment and regimen; Z59.0 Homelessness; Z68.35 Body mass index [BMI] 35.0-35.9, adult
CPT/HCPCS: 36415; 36600; 70491; 71045; 71260; 76536; 80048; 80053; 80305; 81003; 82375; 82728; 82805; 83540; 83550; 83615; 83735; 83880; 84100; 84443; 84484; 85025; 85651; 86308; 86705; 86709; 86803; 87340; 87389; 90732; 93005; 93306; 93308; 93880; 93970; 94640; 97162; 99285; J1644; J1940; J2270; J3475; J3490; J7512; J7626; Q9967